=== PATIENT | male | born 1975 | race Caucasian/White ===

== ENCOUNTER → 2021-01-31 | Emergency (ER) | payer OTHER ==
[~2021-01-31] VITALS: Ht 175.3 cm; Wt 90.0 kg
[~2021-01-31] MED LIST: LIDOcaine 1% W/epiNEPHrine 1:200,000 10ml vial IJ ONE; TETanus/Pertussis (Acell)/Diphther VAC/PF (Tdap-Adult) 0.5ml syringe IMVAC ONE; bacitracin 15gm ointment TP ONE
[2021-01-31 12:11] VITALS: BP 154/83
== END | disposition home or self-care (01) ==
LOC: ER 09:05
DX: S71.112A Laceration without foreign body, left thigh, initial encounter (principal); X58.XXXA Exposure to other specified factors, initial encounter; Y93.89 Activity, other specified; Y92.89 Other specified places as the place of occurrence of the external cause; Y99.8 Other external cause status
CPT/HCPCS: 12004; 90715; 99282